=== PATIENT | female | born 2000 | race African-American/Black ===

== ENCOUNTER 2019-12-22 21:10 | Inpatient (IN) | payer MEDICAID ==
[~2019-12-22] VITALS: Ht 157.5 cm; Wt 40.3 kg
[2019-12-22] MEDS ORDERED: SODIUM CHLORIDE 0.9% 1,000 ML IV ONE (22:15)
[2019-12-22 22:21] LABS: Basophils # (auto) 0 10 ^3/uL (0-0.2); Eosinophils # (auto) 0 10 ^3/uL (0-0.8); Lymphocytes # (auto) 0.5 10 ^3/uL (0.4-5.4); Monocytes # (auto) 1.3 10 ^3/uL (0-1.3); Neutrophils # (auto) 7.9 10 ^3/uL (1.6-8.6); White Blood Cell 9.7 10^3/uL (4.4-10.8)
[2019-12-22 22:23] LABS: Basophils % (auto) 0.1 % (0.0-2.0); Eosinophils % (auto) 0.1 % (0.0-7.0); Hematocrit 28.6 % (36.0-46.0); Hemoglobin 9.1 g/dL (12.2-16.2); Lymphocytes % (auto) 5.2 % (10.0-50.0); Mean Corpuscular Hemoglobin 24.8 pg (28.0-32.0); Mean Corpuscular Hgb Conc. 31.8 g/dL (32.0-36.0); Mean Corpuscular Volume 77.8 fL (80.0-100.0); Monocytes % (auto) 13.1 % (0.0-12.0); Neutrophils % (auto) 81.5 % (37.0-80.0); Platelet Count (auto) 183 10^3/uL (140-450); Red Blood Cells 3.68 10^6/uL (4.0-5.20)
[2019-12-22 22:36] LABS: Albumin 3.3 g/dL (3.4-5.0); Calcium 8.8 mg/dL (8.5-10.1)
[2019-12-22 22:45] LABS: BUN/Creatinine Ratio 17.3; Bilirubin, Total 2.4 mg/dL (0.2-1.0); Total Protein 7.3 g/dL (6.4-8.2)
[2019-12-22 22:50] LABS: Potassium 2.8 mmol/L (3.5-5.1)
[2019-12-23] MEDS ORDERED: POTASSIUM CHL 20MEQ/100ML 100 ML IV ONE ×2 (00:45→00:54)
[2019-12-23] MEDS ORDERED: SODIUM CHLORIDE 0.9% 1,000 ML IV ONE (00:45)
[2019-12-23] MEDS ORDERED: MORPHINE SULF INJ 2 MG/ML SYRINGE 1ML IV ONE (00:45)
[2019-12-23] MEDS ORDERED: ONDANSETRON HCL 4 MG/2 ML VIAL IV ONE (00:45)
[2019-12-23] MEDS ORDERED: POTASSIUM EFFERVESENT TAB 25 MEQ PO ONE (00:45)
[2019-12-23] MEDS ORDERED: IOHEXOL 300 MG/ML 100ML BOTTLE IJ ONE (00:56)
[2019-12-23 01:27] LABS: Urine Bacteria NONE SEEN /hpf (None Seen); Urine Blood 1+ /uL (Negative); Urine Hyaline Cast FEW /lpf (0 - 2); Urine Mucus FEW (None Seen); Urine Specific Gravity 1.022 (1.001-1.035); Urine WBC 40 /hpf (0 - 5)
[2019-12-23] MEDS ORDERED: cefTRIAXone 1GM/50ML D5W 50 ML IV ONE (02:30)
[2019-12-23] MEDS: SODIUM CHLORIDE 0.9% 1,000 ML IV SCH ×5 (03:00→20:48)
[2019-12-23] MEDS ORDERED: LORazepam 0.5 MG TAB PO PRN (03:15)
[2019-12-23] MEDS ORDERED: TEMAZEPAM 15 MG CAP PO PRN (03:15)
[2019-12-23] MEDS ORDERED: ACETAMINOPHEN 325 MG TAB PO PRN (03:15)
[2019-12-23] MEDS ORDERED: DOCUSATE SOD 100 MG CAP PO PRN (03:15)
[2019-12-23] MEDS ORDERED: MORPHINE SULF INJ 2 MG/ML SYRINGE 1ML IV PRN (03:15)
[2019-12-23] MEDS ORDERED: HYDROcodone-ACET 5/325MG TAB PO PRN (03:15)
[2019-12-23] MEDS ORDERED: ALUM & MAG HYDROX-SIMETH LIQ(MAALOX) 30 ML PO PRN (03:15)
--- NOTE | 2019-12-23 04:55 | NUR ---
Admitted this 19 year old female client with the chief complaint of Nausea and vomiting, cramping pain @ the Right side of the abdomen secondary to Intractable Nausea and vomiting and Pyelonephritis. Pt. arrived from ER./ED. by [facility] to [facility] under Med-Surgical service to room 273 A. Pt. placed to the bed comfortably, changed to floor gown, given pt. introduction to the names of Staff taking care of her and welcoming approach by admitting staffs COLIN Almonte and COLIN Stallworth.
[2019-12-23 05:00] VITALS: BP 106/57
--- NOTE | 2019-12-23 05:00 | NUR ---
Pt. is given orientation to the unit floor, hospital routines, policies including "no smoking' , "no visitation policies' due to covid 19 pandemic, pt. provided explanation that she can be called by her family or can make video calls with her family and friends through Iphone. Pt. given orientation of the room environment, use of call-light, TV, bed contrlols, telephone and iphone litigation coordinator can be used while pt. is in the hospital. Pt. given health teachings about the safety and the use of call-light when in need of help or assistance. Pt. assessment done from head to toe. Pt. is adlib in bed, independent with ADL's and ambulatory. Gathered data from pt. and completed pt. admission requirements done by Assigned RN Federica and assigned Resource COLIN Almonte. Pt. provided explanation health teachings on the importance of safety, comfort and to use call-light when in need of help.
[2019-12-23 05:41] VITALS: BP 106/51
--- NOTE | 2019-12-23 06:08 | NUR ---
Pt. is calm and resting in bed. Assessment done and completed. Keep room environment free from unnecessary noise and keep it dim-lighted when sleeping, free from clutter, pt. wearing non-skid socks, and floor keep clean, dry and safe for pt. to ambulate to the BR. Pt. generally weak, assisted with ADL's, can ambulate to the BR with minimal assist. Generally skin intact.
--- NOTE | 2019-12-23 07:17 | NUR ---
Started IVF of NS @ 200 mls./hr. # the LAC G # 20 to hydrate the pt. Pt. denies feeling of nausea and vomiting. Pt. assisted with needs @ the bedside. Pt. verbalized lack of appetite, encouraged to try to eat. Endorsed to the next day Shift RN.
--- NOTE | 2019-12-23 08:00 | NUR ---
OPENING SHIFT NOTE ASSUMED CARE OF PATIENT AWAKE AND ALERT. NO S/S OF DISTRESS NOTED OR COMPLAINTS OF PAIN. PATIENT UPDATED ON POC FOR THE DAY AND ALL QUESTIONS ANSWERED. BED IS IN LOWEST, LOCKED POSITION WITH SIDE RAILS UP X2 AND CALL LIGHT WITHIN REACH. WILL CONTINUE TO MONITOR Q1H AND PRN.
[2019-12-23] MEDS: ONDANSETRON HCL 4 MG/2 ML VIAL IV PRN ×2 (08:06→20:45)
[2019-12-23 09:00] VITALS: BP 99/55
[2019-12-23] MEDS: cefTRIAXone 1GM/50ML D5W 50 ML IV SCH (10:03)
[2019-12-23 10:15] LABS: Basophils # (auto) 0 10 ^3/uL (0-0.2); Basophils % (auto) 0.2 % (0.0-2.0); Eosinophils # (auto) 0 10 ^3/uL (0-0.8); Eosinophils % (auto) 0.1 % (0.0-7.0); Lymphocytes # (auto) 0.9 10 ^3/uL (0.4-5.4); Monocytes # (auto) 0.8 10 ^3/uL (0-1.3)
[2019-12-23 10:17] LABS: Hematocrit 24.9 % (36.0-46.0); Mean Corpuscular Hemoglobin 25.2 pg (28.0-32.0); Mean Corpuscular Hgb Conc. 32.1 g/dL (32.0-36.0); Mean Corpuscular Volume 78.5 fL (80.0-100.0); Monocytes % (auto) 9.9 % (0.0-12.0); Neutrophils # (auto) 6.3 10 ^3/uL (1.6-8.6); Neutrophils % (auto) 78.8 % (37.0-80.0); Platelet Count (auto) 159 10^3/uL (140-450); Red Blood Cells 3.18 10^6/uL (4.0-5.20); Red Cell Distribution Width 17.8 % (11.8-14.3)
[2019-12-23 10:32] LABS: BUN/Creatinine Ratio 13.3; Calcium 8.3 mg/dL (8.5-10.1); Potassium 3.3 mmol/L (3.5-5.1)
[2019-12-23 12:48] VITALS: BP 111/56
[2019-12-23 17:00] VITALS: BP 108/60
--- NOTE | 2019-12-23 19:20 | NUR ---
Opening Shift Note Received report from Maggy SHAW. Assumed care of patient, awake and alert. No S/S of distress/SOB or pain. Instructed on POC and to call for assist PRN, will continue to monitor for changes Q1hr and PRN.
--- NOTE | 2019-12-23 20:45 | NUR ---
Patient is nauseous, Zofran IV given. Continue care.
--- NOTE | 2019-12-23 21:36 | NUR ---
Nausea resolved, will continue to monitor.
[2019-12-23 22:00] VITALS: BP 118/69
[2019-12-24] MEDS: SODIUM CHLORIDE 0.9% 1,000 ML IV SCH ×3 (03:00→15:17)
[2019-12-24 05:00] VITALS: BP 108/72
[2019-12-24 08:47] VITALS: BP 106/60
[2019-12-24] MEDS: cefTRIAXone 1GM/50ML D5W 50 ML IV SCH (09:52)
[2019-12-24 13:00] VITALS: BP 118/83
[2019-12-24] MEDS ORDERED: levoFLOXacin 500 MG TAB PO ONE (16:00)
--- NOTE | 2019-12-24 16:45 | NUR ---
Discharge instructions given as ordered. Encourage to follow up with PMD as instructed. All questions and concerns addressed. Patient verbalized understanding. IV removed with catheter intact, pressure dressing applied. Patient taken to vehicle via wheelchair with all personal belongings, accompanied by staff. No distress noted at time of departure.
== END 2019-12-24 16:45 | disposition home or self-care (01) | DRG 720 ==
LOC: ER 21:10 → EDBD 21:10 → OVERFLOW 21:11 → WEST WING 12-23 05:06
PROVIDERS: ADMIT Hospitalist; ATTEND Hospitalist
DX: A41.9 Sepsis, unspecified organism (principal); N10 Acute pyelonephritis; E87.6 Hypokalemia; F41.9 Anxiety disorder, unspecified
CPT/HCPCS: 36415; 74177; 80048; 80053; 81001; 83605; 84702; 85025; 87040; 87081; 87086; G0378; J0696; J2405; J3480